=== PATIENT | female | born 1965 | race Caucasian/White ===

== ENCOUNTER 2022-01-19 12:11 | Outpatient (CLI) | payer BC, SELFPAY ==
--- NOTE | ~2022-01-19 | XR_ITS ---
EXAMINATION: XR chest 2V 01/19/2022 13:13 INDICATION: Upper respiratory infection PROCEDURE: 2 view chest COMPARISON: 07/07/2018 FINDINGS: The lungs are clear. The cardiomediastinal silhouette is within normal limits. There are no pleural effusions. There is no pneumothorax suspected. IMPRESSION: 1: NO ACUTE CARDIOPULMONARY DISEASE. Reviewed, dictated and finalized at location A.
== END 2022-01-19 12:12 | disposition home or self-care (01) ==
PROVIDERS: PCP Physician Assistant; Visit Provider Physician Assistant
DX: J06.9 Acute upper respiratory infection, unspecified (principal)
CPT/HCPCS: 71046

== ENCOUNTER 2022-07-16 18:24 | Emergency (ER) | payer OTHER, SELFPAY ==
--- NOTE | ~2022-07-16 | XR_ITS ---
EXAMINATION: XR ankle RT min 3V DATE: 07/16/2022 19:29 INDICATION: Right ankle pain and swelling post fall from ladder one day prior. TECHNIQUE: Anteroposterior, oblique, mortise, and lateral views of the right ankle were obtained. COMPARISON: None. FINDINGS: 2-3 mm distraction of a small avulsion fracture at the lateral process of the talus likely involving the footplate of the anterior talofibular ligament. No other fractures identified. Alignment is other hernandez normal. Mild soft tissue along about the ankle most prominent anteriorly and laterally extending over the dorsum of the midfoot. No evident ankle joint effusion. IMPRESSION: 1. Mild distraction of a small lateral talar process avulsion fracture likely involving the footplate of the anterior talofibular ligament. Reviewed, dictated and finalized at location A. IMPRESSION: 1. Mild distraction of a small lateral talar process avulsion fracture likely i nvolving the footplate of the anterior talofibular ligament.
[2022-07-16 18:57] VITALS: BP 132/68; PULSE 71; RESP 16; TEMP 36.4; O2SAT 98
--- NOTE | 2022-07-16 19:07 | ED.LOWEXIN ---
HPI - Extremity Injury (Lower) General Chief Complaint: Extremity Injury, Lower <Sara Mcintyre NP - Last Filed: 07/16/22 19:33> Stated Complaint: Right Foot Pain <CHOLO Jewell Last Filed: 07/16/22 19:33> Time Seen by Provider: 07/16/22 19:07 <Sara Mcintyre NP - Last Filed: 07/16/22 19:33> Source: patient and RN notes reviewed <CHOLO Jewell Last Filed: 07/16/22 19:33> Mode of arrival: ambulatory <CHOLO Jewell Last Filed: 07/16/22 19:33> Limitations: no limitations <CHOLO Jewell Last Filed: 07/16/22 19:33> History of Present Illness HPI Narrative: 56-year-old female presents with concern for right ankle and foot pain. She reports she fell off of an 8 ft ladder yesterday, she says her foot got caught in the ladder when she fell. She reports swelling, bruising, pain to the ankle in particular. She denies any intervention for her symptoms. She reports she has been walking on it, it is slightly more painful to walk on <Sara Mcintyre NP - Last Filed: 07/16/22 19:33> MD complaint: ankle injury <Sara Mcintyre NP - Last Filed: 07/16/22 19:33> Related Data Home Medications: Home Medications Medication Instructions Recorded Confirmed No Home Medications 07/16/22 07/16/22 <CHOLO Jewell Last Filed: 07/16/22 19:33> Allergies/Adverse Reactions: Allergies Allergy/AdvReac Type Severity Reaction Status Date / Time No Known Allergies Allergy Unknown Verified 04/29/18 22:30 simvastatin Allergy Unknown Unknown Verified 07/16/22 18:56 <CHOLO Jewell Last Filed: 07/16/22 19:33> Review of Systems Review of Systems: CONSTITUTIONAL: Denies malaise, chills, sweats, or fever. SKIN: Denies rash or itching, open skin, laceration, abrasion, redness, warmth MUSCULOSKELETAL: Reports right ankle and foot pain, swelling, bruising NEUROLOGIC: Denies numbness, weakness <Sara Mcintyre NP - Last Filed: 07/16/22 19:33> All systems reviewed & are unremarkable except as noted in HPI and below <Sara Mcintyre NP - Last Filed: 07/16/22 19:33> PMFSH Family History Family History: Family History (Updated 12/07/15 @ 10:42 by DOCTOR UNKNOWN) Mother Hypertension Family history of type 2 diabetes mellitus Father Patient's father is in good health Sibling Patient's sister is in good health Patient's brother is in good health <Sara Mcintyre NP - Last Filed: 07/16/22 19:33> Social History Social History: Social History Smoking status: Heavy tobacco smoker Second hand tobacco smoke exposure: No Alcohol intake: current <Sara Mcintyre NP - Last Filed: 07/16/22 19:33> Comments At time of signature, agree with nursing past medical, surgical, social and family history. There is no relevant family history pertinent to the presenting complaint <Sara Mcintyre NP - Last Filed: 07/16/22 19:33> Exam Narrative: GENERAL: Well-appearing, well-nourished, and in no acute distress. HEAD: Normocephalic, atraumatic. EYES: PERRLA, conjunctivae clear NECK: Supple. CHEST: Speaks in full sentences. No respiratory distress. HEART: Regular rate and rhythm. Normal and equal peripheral pulses. EXTREMITIES: Right ankle, foot, digits have grossly normal strength and sensation, slightly limited range of motion likely due to pain. Moderate ankle and foot edema with mild ecchymosis. Normal sensation with sensitivity to light touch and pain. Anterior ankle tenderness. No open wounds, no skin tenting, no devitalized tissue or atrophy, no trophic changes, no obvious deformity, alignment normal, nearby joints and structures intact. Distal pulses palpable and equal bilaterally, skin warm, dry, pink. Capillary refill less than 3 seconds. SKIN: Warm, dry, no rash. NEURO: Alert and oriented x3. PSYCH: Normal mood and affect <Sara Mcintyre NP - Last Filed: 07/16/22 19:33> Course Course Emergency Course: Advised pat
--- NOTE | 2022-07-16 19:10 | PC.NURSE ---
1908- RN to RN report given to Chad Munoz. Pt transferred to [facility] facility for xray
== END 2022-07-16 20:10 | disposition home or self-care (01) ==
PROVIDERS: Emergency Provider Nurse Practitioner
DX: S92.151A Displaced avulsion fracture (chip fracture) of right talus, initial encounter for closed fracture (principal); W11.XXXA Fall on and from ladder, initial encounter
CPT/HCPCS: 29515; 73610; 99214; G0463

== ENCOUNTER 2023-05-12 16:50 | Emergency (ER) | payer OTHER, SELFPAY ==
--- NOTE | 2023-05-12 16:51 | ED.FEMALEGU ---
HPI - Female Genitourinary General Chief complaint: Urogenital-Female Stated complaint: urinary issue/side and back hurting Time Seen by Provider: 05/12/23 16:51 Source: patient Mode of arrival: ambulatory Limitations: no limitations History of Present Illness HPI Narrative: Dot is a 57-year-old female patient presenting to the clinic today with complaints of burning with urination and right side pain x 4 days. She reports no known fever or chills. Does have a history of kidney stones in the past but states that this is not feel as though it is being caused by kidney stone. States pain is only there when she is moving. States she has been coughing and wheezing a lot at thinks that this may be why her back hurts. Denies any fever or chills. Rates pain 5/10 in pain is sharp in nature. Related Data Allergies Allergy/AdvReac Type Severity Reaction Status Date / Time No Known Allergies Allergy Unknown Verified 05/12/23 17:05 Review of Systems Review of Systems: Pertinent positives per HPI. Patient denies any fever, chills, rash, headache, visual changes, dizziness,chest pain, palpitations, nausea, vomiting, diarrhea, constipation,. PMFSH Past Medical History Medical History Allergies Surgical History Surgical History History of shoulder surgery 2000 Family History Family History Mother Hypertension Family history of type 2 diabetes mellitus Father Patient's father is in good health Sibling Patient's sister is in good health Patient's brother is in good health Social History Social History Smoking packs per day: 1.5 Smoking cigarettes per day: 30.0 Smoking status: Current every day smoker Second hand tobacco smoke exposure: No Alcohol intake: former Substance use type: does not use Current Housing: Decline to Answer Concerned About Future Housing: Decline to Answer Difficulty Paying Gas/Electric Bills: Decline to Answer Difficulty Paying for Meds: Decline to Answer Currently Unemployed: Decline to Answer Education: Decline to Answer Difficulty w/ Childcare or Family Care: Decline to Answer Living arrangements: with family Gender identity (if verbalized by the patient): Female Comments At the time of my signature, I reviewed and agree with the nursing past medical, surgical, social, and family history. There is no relevant family history pertinent to the patient complaint. Exam Narrative: General: Well-developed, well nourished, in no apparent distress Head: Normocephalic, atraumatic Eyes: Pupils equally round and reactive to light bilaterally, EOM intact, sclera and conjunctive clear, no discharge, lids normal Ears: TMs intact and clear, ear canals clear, no drainage, grossly hearing normal. Nose: Nares patent, clear nasal discharge, no inflammation, no sinus tenderness. Mouth: Oral pharynx without lesions or masses, good dentition, MMM. Neck: Supple, trachea midline, no enlargement of anterior or posterior cervical nodes, no thyroid masses or goiter palpable. Cardio: Regular rate and rhythm, s1 and s2 normal, no murmur appreciated. Resp: Diminished breath sounds with expiratory wheezing, no rhonchi, rales, or rubs Abdomen: Soft, pliable, bowel sounds present in all quadrants, non-tender to palpation, no organomegly, right CVAT tenderness. Course Course Emergency Course: Portions of this record may have been created with voice recognition software. Level of Care: Express Care Visit Vital Signs Vital signs: Vital signs reviewed MDM - Female Genitourinary MDM Narrative Medical decision making narrative: At the time of visit patient is resting comfortably on the exam table. Patient appears to be nontoxic. Labs: UA
[2023-05-12 17:08] VITALS: BP 122/66; PULSE 64; RESP 16; TEMP 36.2; O2SAT 99
== END 2023-05-12 17:32 | disposition home or self-care (01) ==
PROVIDERS: Emergency Provider Nurse Practitioner Family; PCP Internal Medicine
DX: J40 Bronchitis, not specified as acute or chronic (principal); R10.9 Unspecified abdominal pain; F17.210 Nicotine dependence, cigarettes, uncomplicated
CPT/HCPCS: 81003; 87086; 99213; G0463

== ENCOUNTER 2023-06-20 08:13 | Outpatient (CLI) | payer OTHER, SELFPAY ==
--- NOTE | ~2023-06-20 | US_ITS ---
Limited Abdominal Sonogram: Real-time sonographic imaging of the right upper quadrant was performed. Clinical History: Gallstones Findings: The liver appears echogenic, with no evidence of mass lesion or bile duct dilatation. Main portal vein demonstrates normal direction of flow. The gallbladder is well distended, and appears no rmal with no evidence of gallstone or wall thickening. The common bile duct measures 5 mm. The visua lized pancreas, aorta, and IVC are unremarkable. Impression: Diffuse fatty infiltration of liver. Reviewed, dictated and finalized at location M. Impression: Diffuse fatty infiltration of liver.
== END 2023-06-20 08:14 | disposition home or self-care (01) ==
LOC: ANHIMG 08:15
PROVIDERS: PCP Internal Medicine; Visit Provider Physician Assistant
DX: K80.20 Calculus of gallbladder without cholecystitis without obstruction (principal); K76.0 Fatty (change of) liver, not elsewhere classified
CPT/HCPCS: 76705

== ENCOUNTER 2023-06-25 07:23 | Outpatient (CLI) | payer OTHER, MEDICAID, SELFPAY ==
--- NOTE | ~2023-06-25 | NM_ITS ---
EXAMINATION: NM hepatobiliary w pharm DATE: 06/25/2023 09:35 CDT INDICATION: Abdominal pain COMPARISON: Ultrasound dated 06/20/2023 TECHNIQUE: 5.2 millicuries Choletec was administered intravenously. Scintigraphic images of the abdo men were obtained for one hour. 1.3 mcg of cholecystokinin was then administered with additional 30 m inute imaging of the abdomen. Gallbladder ejection fraction was calculated by the technologist. FINDINGS: There is homogeneous tracer uptake by the liver. Common bile duct activity is seen at 20, and gallbladder activity by 20. There is radiotracer activity in the proximal small bowel loops by 3 5. Following administration of cholecystokinin, gallbladder ejection fraction is calculated to be 61 %. IMPRESSION: 1. Patent cystic duct and common bile duct. No scintigraphic evidence for acute cholecystitis. 2. Gallbladder ejection fraction at 61% (normal is 35% or greater). This is nonspecific, but can be seen with acalculous gallbladder disease, to include chronic acalculous cholecystitis, gallbladder d yskinesia, or cystic duct syndrome. Reviewed, dictated and finalized at location B. IMPRESSION: 1. Patent cystic duct and common bile duct. No scintigraphic evidence for acu te cholecystitis. 2. Gallbladder ejection fraction at 61% (normal is 35% or greater). This is n onspecific, but can be seen with acalculous gallbladder disease, to include chr onic acalculous cholecystitis, gallbladder dyskinesia, or cystic duct syndrome.
== END 2023-06-25 07:24 | disposition home or self-care (01) ==
PROVIDERS: PCP Internal Medicine; Visit Provider Physician Assistant
DX: K76.0 Fatty (change of) liver, not elsewhere classified (principal)
CPT/HCPCS: 78227; A9537; J2805

== ENCOUNTER 2024-07-24 12:25 | Emergency (ER) | payer OTHER, SELFPAY ==
--- NOTE | ~2024-07-24 | XR_ITS ---
XR abdomen/kub 1V Ordering provider: Dallas Flynn APRN History: . left flank pain, hx of renal stones . Comparison: None. FINDINGS: BOWEL: Nonobstructive bowel gas pattern. ORGANOMEGALY: None. SIGNIFICANT PATHOLOGIC CALCIFICATIONS: None. OTHER: No free air is seen under the diaphragm. IMPRESSION: NO ACUTE ABDOMINAL FINDINGS. Reviewed, dictated and finalized at location A.
[2024-07-24 12:35] VITALS: BP 124/72; PULSE 67; RESP 14; TEMP 36.9; O2SAT 100
[2024-07-24 13:04] LABS: EDUAAPPEAR Clear; EDUABILI Negative (Negative); EDUABLOOD Trace (Negative); EDUACOLOR1 Yellow; EDUAGLUCOSE Negative (Negative); EDUAKETONE Negative (Negative); EDUALEUKO Negative (Negative); EDUANITRATE Negative (Negative); EDUAPH 5.5; EDUAPROTEIN Negative (Negative); EDUAUROBILI 0.2
[2024-07-24 13:04] LABS: EDCOVIDSCREEN Negative (Negative); EDINFLUASCREEN Negative (Negative); EDINFLUBSCREEN Negative (Negative)
--- NOTE | 2024-07-24 13:29 | ED_ITS ---
HPI - URI/Sore Throat General Chief Complaint: Upper Respiratory Infection Stated Complaint: UTI/Sinus Time Seen by Provider: 07/24/24 13:00 Source: patient and RN notes reviewed Mode of arrival: ambulatory Limitations: no limitations History of Present Illness HPI Narrative: 58-year-old female presents Express Care complaining of upper respiratory symptoms and left flank pain for 2 days. Patient reports having a dry cough, body aches, and congestion. She said also she developed left flank pain with dysuria. She denies any abdominal pain, nausea, vomiting, diarrhea. She denies any fevers or chills. Patient has a history of kidney stones and has passed one on her own before. She denies any hematuria, urinary retention, or any other symptoms. Related Data Allergies Allergy/AdvReac Type Severity Reaction Status Date / Time No Known Allergies Allergy Unknown Verified 07/24/24 12:34 Review of Systems Review of Systems: CONSTITUTIONAL: Denies fever, chills, or sweats. EYES: Denies visual changes, redness, or discharge. ENT: Denies rhinorrhea, sore throat, or otalgia. Positive for congestion. CARDIOVASCULAR: Denies chest pain, palpitations, or edema. RESPIRATORY: Positive for dry cough. Negative for dyspnea. GASTROINTESTINAL: Denies abdominal pain, nausea, vomiting, or diarrhea. GENITOURINARY: Positive for dysuria. Negative for hematuria. SKIN: Denies rash or itching. MUSCULOSKELETAL: Denies back pain, joint pain, or myalgia. Positive for left flank pain. NEUROLOGIC: Denies headache, numbness, or weakness. PSYCHIATRIC: Denies anxiety or depression. All other systems reviewed are negative, except as documented in HPI. [facility] Past Medical History Medical History Allergies Surgical History Surgical History History of shoulder surgery 1999 Family History Family History Mother Hypertension Family history of type 2 diabetes mellitus Father Patient's father is in good health Sibling Patient's sister is in good health Patient's brother is in good health Social History Social History Smoking packs per day: 1.5 Smoking cigarettes per day: 30.0 Smoking status: Current every day smoker Second hand tobacco smoke exposure: No Alcohol intake: former Substance use type: does not use Current Housing: Decline to Answer Concerned About Future Housing: Decline to Answer Difficulty Paying Gas/Electric Bills: Decline to Answer Difficulty Paying for Meds: Decline to Answer Currently Unemployed: Decline to Answer Education: Decline to Answer Difficulty w/ Childcare or Family Care: Decline to Answer Living arrangements: with family Gender identity (if verbalized by the patient): Female Comments At the time of my signature, I reviewed and agree with the nursing past medical, surgical, social, and family history. There is no relevant family history pertinent to the patient complaint. Exam Narrative: GENERAL: This is a well-nourished, well-developed adult, in no apparent distress. They are non ill-appearing, nontoxic appearing. HEAD: normocephalic, atraumatic. EYES: Sclera clear/white. Conjunctivae normal bilaterally. Vision is grossly intact. Extraocular movements intact. EARS: External ears normal, auditory canals clear and without drainage, TMs normal without perforation. Hearing grossly intact. NOSE: External nose normal with no obvious nasal discharge, nasal turbinates are erythematous bilaterally, no rhinorrhea. THROAT: Mucous membranes moist, posterior pharynx erythemic without swelling. Uvula midline. Postnasal drip present. No exudate. NECK: Neck supple, non-tender without lymphadenopathy, masses or thyromegaly. CARDIOVASCULAR: Regular rate and rhythm without murmurs, gallops, or rubs. RESPIRATORY: Clear to auscultation. Breath sounds equal bilaterally. No wheezes, rales, or rhonchi. GASTROINTESTINAL: Abdomen soft, nondistended. Mild tenderness to left upper quadrant more towards the left flank area. Bowel sounds are active. No hepato- splenomegaly, or palpable masses. No guarding. No rebound tenderness. SKIN: warm, Dry, intact with no suspicious lesions or rash, good texture and turgor. NEURO: awake, alert, and oriented to person, place and time. There were no obvious focal neurologic abnormalities. EXTREMITIES: No joint tenderness, effusion, or edema noted. BACK: Nontender without deformity. No CVA tenderness. Course Course Level of Care: Express Care Visit Vital Signs Vital signs: Vital Signs Temperature 98.5 F 04/24/25 12:35 Pulse Rate 67 07/24/24 12:35 Respiratory Rate 14 07/24/24 12:35 Blood Pressure 124/72 07/24/24 12:35 Pulse Oximetry 100 07/24/24 12:35 Oxygen Delivery Room Air 07/24/24 12:35 Temperature 98.5 F 07/24/24 12:35 Pulse Rate 67 07/24/24 12:35 Respiratory Rate 14 07/24/24 12:35 Blood Pressure 124/72 07/24/24 12:35 Pulse Oximetry 100 07/24/24 12:35 Oxygen Delivery Room Air 07/24/24 12:35 Reviewed MDM - URI/Sore Throat MDM Narrative Medical decision making narrative: Rapid COVID and flu were negative. Upper respiratory symptoms are likely viral in etiology. Urine dipstick showed evidence of blood in her urine. X-ray obtained did not reveal any evidence of a kidney stone. Given patient's symptoms I will go ahead and treat her empirically with antibiotics for urinary tract infection. Urine culture is pending. Patient was offered an ER transfer for further evaluation of her left flank pain. Patient declined and said if her symptoms worsen she will go to the ER. Patient was advised it is possible that she may have a kidney stone with a negative x-ray and may need further advanced imaging to confirm diagnosis. I will also give her a course of Flomax. Patient has a urine strainer at home. Discussed physical exam findings. Advised supportive measures and signs/symptoms to go to the ER. Pt is appropriate for outpt treatment and f/u. Differential Diagnosis Differential diagnosis: Likely upper respiratory infection and other (Urinary tract infection, viral illness, renal stone) Lab Data Attestation: I reviewed the patient's lab results. Labs: Lab Results 07/24/24 07/24/24 Range/Units 13:00 13:01 POC Urine Color Yellow POC Urine Clarity Clear POC Urine pH 5.5 POC Ur Specif Orange 1.020 POC Urine Protein Negative (Negative) POC Ur Glucose (UA) Negative (Negative) POC Urine Ketones Negative (Negative) POC Urine Blood Trace (Negative) POC Urine Nitrite Negative (Negative) POC Urine Bilirubin Negative (Negative) POC Urine Urobilinogen 0.2 POC U Leukocyte Esteras Negative (Negative) POC Influenza A Ag Negative (Negative) POC Influenza B Ag Negative (Negative) POC SARS CoV-2 Ag Negative (Negative) Imaging Data Radiologist's impression: ITS Impressions Abdomen X-Ray 07/24/24 13:20 IMPRESSION: NO ACUTE ABDOMINAL FINDINGS. Critical Care Time Critical Care Time Critical Care Time: No Discharge Plan Discharge Clinical Impression: Upper respiratory infection Qualifiers: URI type: unspecified viral URI Qualified Code(s): J06.9 - Acute upper respiratory infection, unspecified Urinary tract infection Qualifiers: Urinary tract infection type: site unspecified Hematuria presence: with hematuria Qualified Code(s): N39.0 - Urinary tract infection, site not specified Patient Disposition: Home Condition: Stable Instructions: Antibiotic Form, Upper Respiratory Infection (ED), Flank Pain (ED) Additional Instructions: Your x-ray did not show any evidence of a kidney stone. It is still possible that you may have one. Please take Flomax as directed in strain your urine. Please take Flomax at night. Take the antibiotic as prescribed. Finish the antibiotics even if you start to feel better. The urine will be sent of for a culture to identify what type of bacteria is causing your infection. If the culture shows that the antibiotic will not get rid of your infection, you will be notified and a new antibiotic will be called in for you. Increase water intake It is also likely you have a viral illness. Your COVID and flu were negative. Viral illness may last between 7-21 days; antibiotics do not cure viral illness and are NOT recommended at this time. Recommend antihistamine such as Benadryl at night time and Zyrtec or Loly during the day Cough syrup may cause drowsiness; avoid driving or take it at night time. Also, recommend symptomatic treatment includes: rest, fluids, and increase humidity of the air at home. Recommend Acetaminophen or ibuprofen as directed on the bottle to reduce fever, pain, headache. Please schedule a follow-up visit with your personal physician for further evaluation and treatment within 3-5days. If your symptoms persist, change or worsen significantly before you can contact your personal physician then please, without delay, go to the emergency department for further evaluation. you will need to follow up with your PCP, call to schedule an appointment. Go to the ER for any worsening symptoms or concerns Patient Language: Japanese Prescriptions: New cephalexin 500 mg capsule 500 mg PO BID 5 Days Qty: 10 0RF tamsulosin [Flomax] 0.4 mg capsule 0.4 mg PO HS 7 Days Qty: 7 0RF Follow-up/Referrals: Isaac,Jose Denton DO [Primary Care Provider] - Stand Alone Forms: Work/School Release IP Time of Disposition: 13:34
--- NOTE | 2024-07-24 13:49 | PC.NURSE ---
1340- Patient left office without urine strainer.
== END 2024-07-24 13:40 | disposition home or self-care (01) ==
PROVIDERS: PCP Internal Medicine
DX: J06.9 Acute upper respiratory infection, unspecified (principal); N39.0 Urinary tract infection, site not specified; Z20.822 Contact with and (suspected) exposure to COVID-19; F17.210 Nicotine dependence, cigarettes, uncomplicated; Z87.442 Personal history of urinary calculi
CPT/HCPCS: 74018; 81003; 87086; 87426; 87804; 99213; G0463

== ENCOUNTER 2024-12-14 18:14 | Emergency (ER) | payer OTHER, SELFPAY ==
[2024-12-14 18:25] VITALS: BP 126/78; PULSE 61; RESP 18; TEMP 36.5; O2SAT 98
--- NOTE | 2024-12-14 18:44 | ED_ITS ---
HPI - Extremity Problem General Chief complaint: Extremity Problem,Nontraumatic Stated complaint: Right Foot Pain Time Seen by Provider: 12/14/24 18:44 Source: patient Mode of arrival: ambulatory Limitations: no limitations History of Present Illness HPI Narrative: 59 yo F presents with pain swelling, redness, drainage to R foot. Started with rash and itching to R foot 2 wks ago. Started using OTC athletes foot treatment. Redness, swelling and pain for about 5 days, skin peeling 2 days ago. ROM and distal NV intact to R foot. pt [place] and does not feel is relatd. all systems reviewed and negative except as noted above. Related Data Allergies Allergy/AdvReac Type Severity Reaction Status Date / Time No Known Allergies Allergy Unknown Verified 12/14/24 18:33 [facility] Past Medical History Medical History Allergies Surgical History Surgical History History of shoulder surgery 2000 Family History Family History Mother Hypertension Family history of type 2 diabetes mellitus Father Patient's father is in good health Sibling Patient's sister is in good health Patient's brother is in good health Social History Social History Smoking packs per day: 1.5 Smoking cigarettes per day: 30.0 Smoking status: Current every day smoker Second hand tobacco smoke exposure: No Alcohol intake: former Substance use type: does not use Current Housing: Decline to Answer Concerned About Future Housing: Decline to Answer Difficulty Paying Gas/Electric Bills: Decline to Answer Difficulty Paying for Meds: Decline to Answer Currently Unemployed: Decline to Answer Education: Decline to Answer Difficulty w/ Childcare or Family Care: Decline to Answer Living arrangements: with family Gender identity (if verbalized by the patient): Female Comments At time of signature, agree with nursing past medical, surgical, social and family history. There is no relevant family history pertinent to the presenting complaint. Exam Narrative: GENERAL: This is a well-nourished, well-developed patient, in no apparent distress. HEAD: normocephalic, atraumatic. EYES: PERRL. Sclera clear/white. Vision is grossly intact. EARS: External ears normal NOSE: External nose normal NECK: Neck supple, non-tender without lymphadenopathy, masses or thyromegaly. CARDIOVASCULAR: Regular rate and rhythm without murmurs, gallops, or rubs. RESPIRATORY: Clear to auscultation. Breath sounds equal bilaterally. No wheezes, rales, or rhonchi. SKIN: warm, Dry, good texture and turgor. erythematous, macerated between webbing of all toes to R foot, serous drainage, tender on palpation. No fluctuance concerning for abscess. All toes to right foot is erythematous and swollen NEURO: awake, alert, and oriented to person, place and time. There were no obvious focal neurologic abnormalities. EXTREMITIES: No joint tenderness, effusion, or edema noted. Course Course Level of Care: Express Care Visit Vital Signs Vital signs: Vital Signs Temperature 36.5 C 12/14/24 18:25 Pulse Rate 61 12/14/24 18:25 Respiratory Rate 18 12/14/24 18:25 Blood Pressure 126/78 12/14/24 18:25 Pulse Oximetry 98 12/14/24 18:25 Oxygen Delivery Room Air 12/14/24 18:25 Temperature 36.5 C 12/14/24 18:25 Pulse Rate 61 12/14/24 18:25 Respiratory Rate 18 12/14/24 18:25 Blood Pressure 126/78 12/14/24 18:25 Pulse Oximetry 98 12/14/24 18:25 Oxygen Delivery Room Air 12/14/24 18:25 reviewed MDM - Extremity (Nontraumatic) MDM Narrative Medical decision making narrative: a wound culture of right foot obtained. Will treat with antibiotic and antifungal due to patient's exam findings. Patient agrees with plan of care. Will follow up with primary care physician if not improving. Discharge Plan Discharge Clinical Impression: Right foot infection Patient Disposition: Home Condition: Stable Instructions: Antibiotic Form, Cellulitis (ED) Additional Instructions: take medications as prescribed. Keep affected area clean and dry. Wash with soap and water, pat dry with towel. Keep open to air when possible. Follow-up with your primary care physician if not improving. Patient Language: Cam[place]onian Prescriptions: New clindamycin HCl [Cleocin HCl] 300 mg capsule 300 mg PO Q6H 10 Days Qty: 40 0RF itraconazole [Sporanox] 100 mg capsule 200 mg PO BID 7 Days Qty: 28 0RF Rx Instructions: must administer with a meal/food Follow-up/Referrals: Isaac,Jose Denton DO [Primary Care Provider, Internal Medicine] Stand Alone Forms: Work/School Release IP Time of Disposition: 18:57
== END 2024-12-14 19:00 | disposition home or self-care (01) ==
PROVIDERS: Emergency Provider Nurse Practitioner Family; PCP Internal Medicine
DX: L08.9 Local infection of the skin and subcutaneous tissue, unspecified (principal); F17.210 Nicotine dependence, cigarettes, uncomplicated
CPT/HCPCS: 87070; 87075; 87186; 87205; 99213; G0463